=== PATIENT | female | born 1950 | race Caucasian/White ===

== ENCOUNTER 2018-02-20 12:09 | Inpatient (IN) | payer OTHER ==
[2018-02-20] VITALS (40 sets, daily range): BP systolic 63–145; BP diastolic 17–88
[~2018-02-20] VITALS: Ht 172.7 cm; Wt 186.5 kg
--- NOTE | ~2018-02-20 | HC ---
[facility] [place] [address] CONSULTATION Name: JONATHAN ANDUJAR Room #: 236-P [facility] IN ..#: [id number] Admission: 02/20/18 Attend Phys: Pernell Lawrence MD Discharge: Date of : 54 Report #: [id number] THIS REPORT FOR: //name// CC: Beverly Lawrence DATE OF SERVICE: 02/28/2018 FRONT END SOFTWARE DEVELOPER: Ascencion Shirley MD. SPECIALTY: Otolaryngology. REASON FOR CONSULTATION: Tracheostomy. HISTORY OF PRESENT ILLNESS: This patient is a 67-year-old female who has morbid obesity. She has multiple medical problems in addition to this. She has respiratory failure and has required mechanical ventilation and endotracheal intubation for extended length of time. Apparently, this has been a recurring theme with readmissions to the hospital for respiratory problems. I understand that she has multiple other medical problems including kidney disease, morbid obesity, obstructive sleep apnea, hypoventilation system, atrial fibrillation, cardiomyopathy, hypothyroidism. Tracheostomy has been discussed with the family and they have signed a consent and they are in agreement to do this. The patient has been on heparin and received her last dose this morning. PHYSICAL EXAMINATION: A middle-aged woman lying in hospital ICU bed with oral endotracheal intubation. She is morbidly obese. She has a short, stocky neck with a low lying larynx. There is a central line in the right side of the neck. ASSESSMENT: Respiratory failure and multiple medical problems requiring continued mechanical ventilation. RECOMMENDATION: Proceed with tracheostomy. This is arranged for tomorrow, will be performed by my partner, Dr. Christos Gracia. She is to stay off heparin until that time. <ELECTRONICALLY SIGNED> By: Ascencion Shirley MD 03/01/182029 01 26 Ascencion Shirley MD /nt
--- NOTE | ~2018-02-20 | EEG ---
[facility] [place] [address] ELECTROENCEPHALOGRAM Name: JONATHAN ANDUJAR Room #: 236-P [facility] IN M.R.#: [id number] Admission: 02/20/18 Attend Phys: Pernell Lawrence MD Discharge: 03/14/18 Date of : 54 Report #: [id number] THIS REPORT FOR: //name// CC: Beverly Lawrence DATE OF SERVICE: 03/13/2018 This patient is being evaluated for altered mental status. EEG was done by placing the electrodes by standard 10-20 system of electrode placement. Both referential and sequential montages were used for recording. Background activity is about 8 Hz and 30 microvolt. It is a poorly formed background activity. Photic stimulation is unremarkable. No active epileptiform activity was noted. IMPRESSION: This is an abnormal electroencephalogram because it is disorganized and poorly formed. There is a nonspecific abnormality, which can occur with encephalopathy, effect of psychotropic medication, dementia, etc. Clinical correlation is recommended. <ELECTRONICALLY SIGNED> By: Alberto Sebastian MD 03/17/18 1424 1811 1818 Alberto Sebastian MD /nt
--- NOTE | ~2018-02-20 | 2DMMODE ---
[facility] [address] [place] [address] 2 D/M-MODE ECHOCARDIOGRAM Name: JONATHAN ANDUJAR Room #: 242-P [facility] IN ..#: [id number] Admission: 02/20/18 Attend Phys: Pernell Lawrence, Discharge: Date of : 54 Date of Service: 02/21/18 1627 Report #: [id number] THIS REPORT FOR: //name// APPROVED REPORT Study performed: 02/21/2018 15:11:30 EXAM: Comprehensive 2D, Doppler, and color-flow Echocardiogram Patient Location: ICU Room #: 242 Status: routine BSA: 2.86 HR: 85 bpm BP: 109/58 mmHg Rhythm: Atrial Fibrillation Other Information Study Quality: Adequate Indications Short of breath, Afib, cardiomyopathy. Hx: HTN, Afib, DM. 2D Dimensions RVDd: 52.05 mm LVEF(%): 43.08 (>50%) IVSd: 11.50 (7-11mm) LVOT Diam: 22.24 (18-24mm) LVDd: 61.33 mm PWd: 10.57 (7-11mm) Ascending Ao: 35.26 (22-36mm) LVDs: 48.04 (25-40mm) Aortic Root: 28.90 mm Saravia's LVEF: 43.08 % Volumes Left Atrial Volume (Systole) Single Plane 4CH: 100.32 mL Single Plane 2CH: 84.28 mL Aortic Valve AoV Peak Yoni.: 2.06 m/s AO Peak Gr.: 17.12 mmHg LVOT Max P.53 mmHg LVOT Max V: 1.37 m/s MANJU Vmax: 2.57 cm2 Mitral Valve MV Decel. Time: 213.59 ms MV E Max Yoni.: 1.35 m/s [facility] [place] [address] 2 D/M-MODE ECHOCARDIOGRAM Name: PRATIMAJONATHAN S Room #: 242-P [facility] IN ..#: [id number] Admission: 02/20/18 Attend Phys: Pernell Lawrence, Discharge: Date of : 54 Date of Service: 02/21/18 1627 Report #: [id number] Pulmonary Valve PV Peak Yoni.: 1.39 m/s PV Peak Gr.: 7.93 mmHg Tricuspid Valve TR Peak Yoni.: 2.81 m/s RAP Estimate: 15.00 mmHg TR Peak Gr.: 32.00 mmHg PA Pressure: 47.00 mmHg Left Ventricle Left ventricle is mildly dilated. There is normal left ventricular wall thickness. Left ventricular systolic function is moderately decreased. LVEF is 35-40%. This study is not technically sufficient to allow evaluation of the LV diastolic function due to atrial fibrillation. Right Ventricle Right ventricle is dilated. Right ventricle is hypokinetic. Atria Left atrium is dilated. Right atrium is dilated. Aortic Valve The aortic valve is normal in structure. No aortic regurgitation is present. There is no aortic valvular stenosis. Mitral Valve The mitral valve is normal in structure. Moderate mitral regurgitation. Tricuspid Valve The tricuspid valve is normal in structure. Moderate tricuspid regurgitation. Estimated PAP is 45-50mmHg. Pulmonic Valve The pulmonary valve is normal in structure. Trace pulmonic regurgitation. Great Vessels The aortic root is normal in size. The ascending aorta is normal in size. IVC is dilated and collapses <50% with inspiration. Pericardium There is no pericardial effusion. [facility] [address] [place] [address] 2 D/M-MODE ECHOCARDIOGRAM Name: JONATHAN ANDUJAR Room #: 242-P [facility] IN ..#: [id number] Admission: 02/20/18 Attend Phys: Pernell Lawrence, Discharge: Date of : 54 Date of Service: 02/21/18 1627 Report #: [id number] <Conclusion> Left ventricle is mildly dilated. LVEF is 35-40%. Right ventricle is dilated. Right ventricle is hypokinetic. Left atrium is dilated. Right atrium is dilated. The aortic valve is normal in structure. The mitral valve is normal in structure. Moderate mitral regurgitation. The tricuspid valve is normal in structure. Moderate tricuspid regurgitation. Estimated PAP is 45-50mmHg. The pulmonary valve is normal in structure. Trace pulmonic regurgitation. There is no pericardial effusion. <ELECTRONICALLY SIGNED> By: Mann Roque MD 02/21/181626 26 26 Mann Roque MD /INF
--- NOTE | ~2018-02-20 | O ---
[facility] [place] [address] OPERATIVE REPORT Name: JONATHAN ANDUJAR Room #: 236-P [facility] IN M.R.#: [id number] Admission: 02/20/18 Attend Phys: Pernell Lawrence MD Discharge: Date of : 54 Report #: [id number] THIS REPORT FOR: //name// CC: Beverly Lawrence DATE OF SERVICE: 03/01/2018 PROCEDURES: 1. Tracheostomy, [address]. 2. Bronchoscopy via tracheal stoma. PREOPERATIVE DIAGNOSES: 1. Respiratory failure. 2. Morbid obesity. POSTOPERATIVE DIAGNOSES: 1. Respiratory failure. 2. Morbid obesity. SURGEON: Christos Gracia MD ANESTHESIA: General. ESTIMATED BLOOD LOSS: 15 mL. COMPLICATIONS: None. SPECIMENS: None. FINDINGS: 1. The patient was found to have a normal tracheal anatomy. 2. A size #8 proximal XLT tracheostomy tube was placed at the end of the case. Tracheostomy placement was confirmed via a flexible endoscopy via a tracheostomy stoma. This was found to be in the trachea above the patricia. INDICATIONS FOR PROCEDURE: The patient is a 67-year-old lady who has a history of respiratory failure and morbid obesity. She has failed to wean from the vent and it is said that she would benefit from tracheostomy placement. The risks, benefits and alternatives were discussed with her family and they agreed to proceed. DESCRIPTION OF PROCEDURE: After informed consent was obtained, the patient was taken to the operating room and placed in supine position. She underwent general anesthesia. She was prepped and draped in the usual fashion. A timeout [facility] [address] [place] [address] OPERATIVE REPORT Name: JONATHAN ANDUJAR Room #: 236-P ADM IN M.R.#: [id number] Admission: 02/20/18 Attend Phys: Pernell Lawrence MD Discharge: Date of : 54 Report #: [id number] was performed. Correct patient and procedure were identified. A horizontal incision was marked between the cricoid cartilage and the sternal notch. Skin was incised with a 15 blade scalpel. Subcutaneous fat was then removed with Bovie cautery. Fascia was divided in a vertical fashion using Bovie cautery. Strap muscles were identified and these were divided in the midline raphae using the Bovie cautery and then retracted laterally. Thyroid isthmus was then identified. This was elevated off the anterior tracheal wall with a right angle. This was then divided with the Bovie cautery. The thyroid was then retracted laterally to expose the anterior wall of the trachea. The cricoid cartilage was identified. An inferiorly based Zack flap was designed between the first and second tracheal rings. Anesthesia then deflated the cuff on the endotracheal tube. An #11 blade scalpel was used to incise between the first and second tracheal rings. The vertical limbs of the Zack flap were then created using heavy Metzenbaum scissors. The flap was then retracted inferiorly. The endotracheal tube was withdrawn by the Anesthesia Service. A size #8 proximal XLT tracheostomy tube was then placed into the tracheostomy and the patient was then connected to the anesthesia circuit and end tidal CO2 were confirmed. The trach was then secured to the skin with 3-0 nylon sutures. One was placed in each corner for a total of 4 sutures. It was also secured by placing tracheostomy ties. Bronchoscopy was then performed through the tracheostomy tube with a flexible endoscope and it was confirmed that the tracheostomy tube was in the airway and that the tip was sitting above the patricia. The endoscope was then withdrawn. The patient was hooked back up to the anesthesia circuit. She was then turned back over to the Anesthesia Service and successfully transported back to the ICU in stable condition. All counts were reported as correct and there were no complications during the procedure. DISPOSITION: The patient will remain in the ICU and routine tracheostomy care will be performed. <ELECTRONICALLY SIGNED> By: Christos Gracia MD 03/07/18 1745 1329 1422 Christos Gracia MD /nt
--- NOTE | ~2018-02-20 | PATH ---
[facility] [place] [address] PATHOLOGY RPT PROCEDURE Name: JONATHAN ANDUJAR Room #: 236-P ADM IN M.R.#: [id number] Admission: 02/20/18 Date of : 54 Discharge: Report #: [id number] Path Case #: [id number] Note [facility] Accession Number: [id number] TESTS RESULT FLAG UNITS REF RANGE LAB Clinician Provided Cytology Information No. of containers..01 Other (Miscellaneous) Source: BAL RUL DIAGNOSIS: 02 BAL RUL INCONCLUSIVE. REACTIVE BRONCHIAL CELLS ARE PRESENT. PULMONARY MACROPHAGES PRESENT, INDICATIVE OF LOWER RESPIRATORY TRACT SAMPLING. ATYPICAL EPITHELIOID CELLS WITH ENLARGED NUCLEI IDENTIFIED, SEE COMMENT. Comment: Scattered groups of atypical epithelioid cells with low nuclear to cytoplasmic ratio and prominent nucleoli are identified. These may represent reactive bronchial cells or neoplastic cells. The presence of diffuse parenchymal consolidation on CT lung is noted. Please correlate clinically. [facility] - Dr. Keren Farmer. (IUV; 02/24/18) Signed out by: 02 Isabel Cervantes MD, Pathologist NPI- [id number] Performed by: 03 Ophelia Burton, Litigation Counsel ([facility]) Gross description: 01 9ML, RED, CLOUDY /LCS FLAG LEGEND: L-Low Normal,H-High Normal,LL-Alert Low,HH-Alert High <-Panic Low,>-Panic High,A-Abnormal,AA-Critical Abnormal Performed at: 01 [facility] [address] [facility] [address] [place] [address] Albert Mosher MD, [address] [address] Isabel Cervantes MD, [address] [facility] [address] [address] [address] PATHOLOGY RPT PROCEDURE Name: JONATHAN ANDUJAR Room #: 236-P [facility] IN .R.#: [id number] Admission: 02/20/18 Date of : 54 Discharge: Report #: [id number] Path Case #: [id number] Jakcy Doran MD, Performed at: [address], [place], [place] [id number] MD Albert Mosher MD Phone: [phone]
--- NOTE | ~2018-02-20 | HC ---
[facility] [place] [address] CONSULTATION Name: ANDUJARJONATHAN Verde Room #: 236-P [facility] IN M.R.#: [id number] Admission: 02/20/18 Attend Phys: Pernell Lawrence MD Discharge: Date of : 54 Report #: [id number] THIS REPORT FOR: //name// CC: Beverly Lawrence REASON FOR CONSULTATION: Acute kidney injury. REASON FOR PRESENTATION: Shortness of breath. HISTORY OF PRESENT ILLNESS: This is a very well known patient to me. She is a 67-year-old with morbid obesity, hypoventilation syndrome, pulmonary hypertension, cardiomyopathy, chronic kidney disease. She was recently discharged from [facility] after being treated for volume overload and cellulitis with sepsis. Her creatinine has leveled at around 2.0. I evaluated her this morning in the [facility] and she was having major issues with her breathing and somnolence and I asked that she be transferred to [facility] because of an acute kidney injury, worsening pulmonary status. On presentation to the Emergency Room, she was found to be in hypercapnic respiratory failure with a pH of 7.20 and a pCO2 peaking at 100. She had an acute kidney injury with a BUN of 121 and a creatinine of 4.2 with a potassium of 6.2. She suffers from major comorbid conditions and lengthy discussion has been carried out with her family members regarding her very poor prognosis. Family wanted to continue with all current supportive measures at this point. She failed trials of Lasix. MEDICATIONS: 1. Amiodarone. 2. Atorvastatin. 3. Diltiazem. 4. Levothyroxine. 5. Eliquis. 6. Iron. 7. Cefepime. PAST MEDICAL AND SURGICAL HISTORY: 1. AFib. 2. Obstructive sleep apnea. 3. Obesity. 4. Pulmonary hypertension. 5. Cellulitis. 6. Lymphedema. 7. Chronic kidney disease. 8. D and Cs. 9. Oophorectomy. 10. Appendectomy. [facility] [address] [place] [address] CONSULTATION Name: PRATIMAJONATHAN S Room #: 236-[facility] IN [facility].#: [id number] Admission: 02/20/18 Attend Phys: Pernell Lawrence MD Discharge: Date of : 54 Report #: [id number] SOCIAL HISTORY: She used to live by herself. No drug or alcohol abuse. FAMILY HISTORY: Significant for chronic kidney disease. Her mom because of kidney failure. REVIEW OF SYSTEMS: This was obtained from her family member. GENERAL: Significant for somnolence and weakness. PULMONARY: Significant for shortness of breath. CARDIOVASCULAR: No chest pain. She does have AFib. MUSCULOSKELETAL: Significant lower extremity edema and cellulitis. GENITOURINARY: Decreased urine output. PHYSICAL EXAMINATION: GENERAL: She was on the CPAP. VITAL SIGNS: Blood pressure was marginal at 106/ . She did have low blood pressure at 93/64. She was afebrile. HEAD AND NECK: Morbidly obese. CHEST: Very limited air entry bilaterally. CARDIOVASCULAR: Distant S1, S2. ABDOMEN: Morbid obesity. LOWER EXTREMITIES: Extensive lymphedema. LABORATORY DATA: Reviewed. BUN is 121, creatinine is 4.2. Sodium is 134, potassium is 6.2. Chest x-ray reviewed. ASSESSMENT, IMPRESSION, PLAN: 1. Acute kidney injury. 2. Hypercapnic respiratory failure. 3. Hyperkalemia. 4. Anuria. 5. Morbid obesity. 6. Cellulitis. 7. Pulmonary hypertension. 8. Cardiomyopathy. We had a lengthy discussion with her family members in both [facility] and [facility]. Family was very resistant for any palliative and comfort care. We have explained for the family on numerous occasions that the root of the problem is her lung issues, morbid obesity, cardiomyopathy, pulmonary hypertension. Family as of this moment wants all heroic measures. They are considering temporary dialysis for her hyperkalemia and fluid overload and if there is no improvement in her condition, we will proceed with palliative and comfort care. I explained for the family on numerous occasions that she is not a good candidate for any long-term dialysis. [address] [address] CONSULTATION Name: ANDUJARJONATHAN Verde Room #: 236-P [facility] IN M.R.#: [id number] Admission: 02/20/18 Attend Phys: Pernell Lawrence MD Discharge: Date of : 54 Report #: [id number] 9. We will ask IR to place temporary dialysis catheter. 10. We will initiate on hemodialysis today. 11. Pending intubation for her hypercapnic respiratory failure. 12. Treatment of her cellulitis. 13. Control of her atrial fibrillation. 14. Broad-spectrum antibiotic. 15. We will continue to follow along. <ELECTRONICALLY SIGNED> By: Serafin Riley MD 02/25/18 0756 2032 0559 Serafin Riley MD /nt
--- NOTE | ~2018-02-20 | EKG ---
[address] [employer] [place] [address] ELECTROCARDIOGRAM REPORT Name: JONATHAN ANDUJAR Room #: 236-P ADM IN M.R.#: [id number] Admission: 02/20/18 Attend Phys: Pernell Lawrence MD Discharge: Date of : 54 Report #: [id number] THIS REPORT FOR: //name// [facility] Test Date: 2018-03-02 Test Time: 09:55:46 Pat Name: JONATHAN ANDUJAR Department: Room: 236 Gender: F [employer]: Mela LEBRON : 1950 Requested By: Eddy Gerardo Order Number: [id number] MD: Fernando Gottlieb Measurements Intervals Snyder Rate: 116 P: AR: QRS: -3 QRSD: 144 T: 148 QT: 360 QTc: 501 Interpretive Statements Atrial fibrillation Left bundle branch block Compared to ECG 02/20/2018 12:10:30 No significant changes Electronically Signed On 03-03-2018 12:45:58 CDT by Fernando Gottlieb [email or web address] <ELECTRONICALLY SIGNED> By: Fernando Gottlieb MD, [facility] 03/03/18 1245 4 Fernando Gottlieb MD, [facility] /EPI
--- NOTE | ~2018-02-20 | HC ---
[facility] [place] [address] CONSULTATION Name: ANDUJARJONATHAN Verde Room #: 242-P [facility] IN M.R.#: [id number] Admission: 02/20/18 Attend Phys: Pernell Lawrence MD Discharge: Date of : 54 Report #: [id number] THIS REPORT FOR: //name// CC: Beverly Lawrence TYPE OF REPORT: Infectious disease consultation. REASON FOR CONSULTATION: I was asked to evaluate concerning sepsis, acute renal failure, respiratory failure and hypoxia. HISTORY OF PRESENT ILLNESS: The patient was a 67-year old, underlying chronic kidney disease, atrial fibrillation and morbid obesity; who was hospitalized in [facility] on 02/05/2018. She had lower extremity venous stasis wounds with cellulitis. Culture positive for MRSA and pseudomonas. She was admitted with pneumonia and respiratory acidosis, shock and respiratory failure. She did require intubation and mechanical ventilation. Within 24 hours. She was extubated and remained on BiPAP. She does have underlying obstructive sleep apnea. She initially was treated with vancomycin and Zosyn and later switched to cefepime and doxycycline. She was transferred on 02/17/2018 to [facility] on BiPAP. Her lower extremities had improved. She was alert and cooperative during the weekend only to develop further respiratory compromise today with acute renal failure and hyperkalemia. She was therefore transferred to [facility] for further treatment. She required intubation and mechanical ventilation. She is now on the ventilator and sedated. No vomiting or diarrhea. Decreased urine output with bloody urine noted. She did require acute dialysis. She has a right IJ dialysis catheter in place. Left upper extremity PICC remains in place. PAST MEDICAL HISTORY: COPD; obstructive sleep apnea, on chronic oxygen use; morbid obesity; venous stasis disease and atrial fibrillation. FAMILY HISTORY: Noncontributory. SOCIAL HISTORY: She is a past smoker. No significant alcohol intake and no HIV risk factors. ALLERGIES: None. MEDICATIONS: As noted on her NOV, now on vancomycin and cefepime. PHYSICAL EXAMINATION: VITAL SIGNS: Afebrile and hemodynamically stable on Levophed drip and propofol. She is on FiO2 of 50%, sedated. Lower extremity venous stasis dermatitis much improved from last week. No draining wounds. No cellulitis. She does arouse. CHEST: Coarse bilaterally. HEART: Regular, without murmur. [address] [address] CONSULTATION Name: JONATHAN ANDUJAR Room #: 242-P [facility] IN [facility]#: [id number] Admission: 02/20/18 Attend Phys: Pernell Lawrence MD Discharge: Date of : 54 Report #: [id number] ABDOMEN: Obese and soft. Right IJ catheter for dialysis unremarkable. EXTREMITIES: Left upper extremity PICC unremarkable. RADIOLOGICAL DATA: Chest x-ray, bilateral pulmonary infiltrates. LABORATORY DATA: ABG on 50%: Lactate 1.3, pO2 of 76, pCO2 of 81 and pH 7.19. BNP 14,162. Liver function panel normal. Sodium 134, potassium 6.2, bicarbonate 31 and creatinine 4.2. Urinalysis 6-15 wbc's, greater than 20 rbc's and few bacteria. Hemoglobin 8.8; white count 19.8 and platelet count 129,000. Differential, 91% segs. IMPRESSION: A 67-year old with chronic kidney disease, chronic obstructive pulmonary disease, obstructive sleep apnea, obesity, recent respiratory failure on bilevel positive airway pressure and bilateral lower extremity venous stasis with ulcerations overall improved in this regard. Now acute renal failure with hyperkalemia requiring acute dialysis. She has bilateral pulmonary infiltrates and respiratory failure. Consideration would include a combination of congestive heart failure and healthcare-associated pneumonia. RECOMMENDATIONS: Recommend broad antibiotic coverage with vancomycin and cefepime. We will repeat blood cultures, sputum culture and urine culture. Adjust antibiotics to her renal failure. I have discussed with nursing at the bedside. <ELECTRONICALLY SIGNED> By: Kings Dejesus MD 02/21/18 0744 0000 0220 Kings Dejesus MD /nt
--- NOTE | ~2018-02-20 | HC ---
[facility] [place] [address] CONSULTATION Name: JONATHAN ANDUJAR Room #: 242-P [facility] IN ..#: [id number] Admission: 02/20/18 Attend Phys: Pernell Lawrence MD Discharge: Date of : 54 Report #: [id number] THIS REPORT FOR: //name// CC: Beverly Lawrence TYPE OF REPORT: Pulmonary consultation. REFERRAL PHYSICIAN: Pernell Lawrence M.D. REASON FOR CONSULTATION: Dxkko-ns-xhtpvhg hypercapnic hypoxic respiratory failure. HISTORY OF PRESENT ILLNESS: The patient is a 67-year-old white female who was brought to the Emergency Room with progressive hypoxia, oliguria for the past 24 hours. A pulmonary consultation was requested. History is very limited as the patient is very hypersomnolent. She is on BiPAP. There is a niece who lives with the patient. She states that she has been chronically ill. She was hospitalized at [facility] more than 2 weeks ago. She was then transferred to [facility] for rehabilitation. She was in her usual state of health until one day prior to presentation, she was found to be more hypoxic with progressive oliguria. She is arousable, but very somnolent. Her pCO2 on admission was more than 90 mmHg. PAST MEDICAL HISTORY: Notable for history, WENDY, morbid obesity, cardiomyopathy, atrial fibrillation, hypertension, chronic lower extremity cellulitis, recurrent pneumonias, chronic kidney disease stage 3 and hypothyroidism. PAST SURGICAL HISTORY: Notable for oophorectomy, appendectomy and D and C. ALLERGIES: None to medications. MEDICATIONS: Lists are reviewed and this include DuoNeb, amiodarone, Lipitor, Cardizem, Lasix, Synthroid, nystatin, Protonix, Eliquis, doxycycline, methylprednisolone 40 mg once a day, multivitamins, alprazolam and hydrocodone. FAMILY HISTORY: Unknown. SOCIAL HISTORY: No tobacco or alcohol use. She lives with a niece, has no children, has no . REVIEW OF SYSTEMS: Deferred as the patient is on BiPAP. [facility] [address] [place] [address] CONSULTATION Name: PRATIMAJONATHAN Mehreen Room #: 242-P [facility] IN [facility]#: [id number] Admission: 02/20/18 Attend Phys: Pernell Lawrence MD Discharge: Date of : 54 Report #: [id number] PHYSICAL EXAMINATION: GENERAL: She is very somnolent but arousable. VITAL SIGNS: Temperature is 96.8 degrees Fahrenheit, pulse is 90, respiratory rate is 18, blood pressure is 100/72 mmHg and saturation is 100% on BiPAP. HEENT: Normocephalic and atraumatic. NECK: Supple, without any lymphadenopathy or thyromegaly. CHEST: Breath sounds are fair decreased bilaterally. No obvious wheezes or rales. CARDIOVASCULAR: Normal S1 and S2. There are no murmurs or gallop. There is no JVD. There is no carotid bruit. Pulses are 2+/4+ bilaterally. BREASTS: Exam deferred. ABDOMEN: Obese, soft and nontender. No organomegaly or masses felt. GENITOURINARY: Deferred. RECTAL: Deferred. EXTREMITIES: Notable for 3-4+ bilateral pretibial edema, moderate stasis dermatitis is noted in the lower extremities. NEUROLOGICAL: Very somnolent but arousable. RADIOLOGICAL DATA: Portable chest x-ray shows patchy bilateral infiltrates, greater in the right than the left, infiltrates appears to involve all five lobes. There are no old x-rays for comparison. EKG shows left bundle-branch block and atrial fibrillation. LABORATORY DATA: Sodium 134, potassium 6.2, chloride 97, CO2 31, BUN is 121 and creatinine is 4.2. WBC 9800, hemoglobin 8.8 and platelets are normal and no evidence of bandemia. Arterial blood gas on admission revealed pH 7.11, pCO2 100 and pO2 of 71. Albumin 2.4. IMPRESSION: 1. Sckic-ll-trvucai hypercapnic hypoxic respiratory failure in this 67-year-old morbidly obese white female. She has a history of recurrent pneumonias and obstructive sleep apnea. She is quite somnolent at this time. Chest x-ray shows moderate bilateral patchy infiltrates. Etiology may be due to recurrent pneumonia along with underlying obstructive sleep apnea with probable component of obesity hypoventilation syndrome. 2. Acute kidney injury/chronic kidney disease. 3. Obstructive sleep apnea. 4. History of recurrent pneumonia with bilateral infiltrates. It is unclear if the patient has chronic infiltrates or interstitial lung disease. If so, we will need to be concerned regarding drug-induced interstitial lung disease such as amiodarone. 5. Permanent atrial fibrillation, anticoagulation. Also, on amiodarone as see above comments. 6. Cardiomyopathy. 7. Hypertension. [facility] [address] [place] [address] CONSULTATION Name: JONATHAN ANDUJAR Room #: 242-P [facility] IN [place]#: [id number] Admission: 02/20/18 Attend Phys: Pernell Lawrence MD Discharge: Date of : 54 Report #: [id number] 8. Hypothyroidism. 9. Chronic lower extremity cellulitis. 10. Hyperkalemia with presumed worsening renal function. 11. Severe protein-calorie malnutrition. RECOMMENDATIONS: We will continue BiPAP given altered mental status, quite concerned the patient may not be able to stabilize with noninvasive positive pressure ventilation. A followup arterial blood gas is recommended. Agree with broad-spectrum antibiotics to treat for recurrent pneumonia, possible aspiration. The patient scheduled to undergo placement of a temporary dialysis catheter to undergo urgent dialysis given hyperkalemia. DVT and GI prophylaxis will be addressed. ADDENDUM: A followup arterial blood gas shows worsening respiratory acidosis. She was electively intubated with a 7.5 mm ET tube with a GlideScope. Follow up chest x-ray, atrial blood gas is pending. Thank you for this consultation. CRITICAL CARE TIME: One hour. <ELECTRONICALLY SIGNED> By: Aryan Zarco MD 02/21/18 1408 1733 0112 Aryan Zarco MD /nt
--- NOTE | ~2018-02-20 | DEA ---
[facility] [place] [address] SUMMARY Name: PRATIMAJONATHAN Verde Room #: 236-P [facility] IN ..#: [id number] Admission: 02/20/18 Attend Phys: Pernell Lawrence MD Discharge: 03/14/18 Date of : 54 Report #: [id number] THIS REPORT FOR: //name// CC: Beverly Lawrence DATE OF SERVICE: 03/14/2018 SUMMARY DIAGNOSES: 1. Acute respiratory failure. 2. Acute on chronic hypoxic and hypercapnic respiratory failure. 3. Obesity hypoventilation. 4. Respiratory acidosis. 5. Acute encephalopathy secondary to hypercapnia and possible sepsis. 6. Status post tracheostomy. 7. Acute renal failure. 8. Chronic kidney disease, stage 3. 9. Atrial fibrillation. 10. Nonischemic cardiomyopathy, ejection fraction of 35-40%. 11. Diabetes. 12. Anemia of chronic disease. 13. Thrombocytopenia. HOSPITAL COURSE: The patient is a 67-year-old female, with history of obesity hypoventilation, diabetes, hyperlipidemia and hypothyroidism, was recently admitted at [place] with cellulitis secondary to MRSA, was brought in from [facility] secondary to being very somnolent. The patient was recently admitted at [place] with cellulitis secondary to methicillin-resistant Staphylococcus aureus. She was discharged to [facility]. She was brought back to [facility] because of worsening mental status. On arrival, she was found to be in acute renal failure with a creatinine of 4, potassium was 6.2. She was also hypoxic. The patient was seen by infectious disease and pulmonary. The patient was subsequently intubated for acute respiratory failure. The patient was unable to be weaned off the ventilator and subsequently, tracheostomy was performed. She had an echocardiogram done during this hospitalization, which showed nonischemic cardiomyopathy with EF of 35-40%. The patient's renal function never improved, and the patient required dialysis. Her mental status did not improve much. The patient required Levophed. She was unable to be weaned off of Levophed. Poor prognosis was discussed with the family. According to the family, the patient would not want to be kept alive with artificial means. The patient has a continued decline over the last few years and progressively gotten worse. [address] [address] SUMMARY Name: JONATHAN ANDUJAR Room #: 236-P [facility] IN [facility]#: [id number] Admission: 02/20/18 Attend Phys: Pernell Lawrence MD Discharge: 03/14/18 Date of : 54 Report #: [id number] Family requested palliative care and hospice. The patient was subsequently placed on hospice and she on 03/14/2018. <ELECTRONICALLY SIGNED> By: Ubaldo Patterson MD 03/21/18 1606 [id number] Ubaldo Patterson MD /jimbo
--- NOTE | ~2018-02-20 | EKG ---
[address] [address] ELECTROCARDIOGRAM REPORT Name: JONATHAN ANDUJAR Room #: 242-P ADM IN M.R.#: [id number] Admission: 02/20/18 Attend Phys: Pernell Lawrence MD Discharge: Date of : 54 Report #: [id number] THIS REPORT FOR: //name// [facility] ED Test Date: 2018-02-20 Test Time: 12:10:30 Pat Name: JONATHAN ANDUJAR Department: Room: Gender: F Relocation Associate: VANGEI : 1950 Requested By: Renetta Bobby Order Number: [id number] MD: Bert Galindo Measurements Intervals Kathleen Rate: 92 P: ME: QRS: 118 QRSD: 141 T: 84 QT: 378 QTc: 468 Interpretive Statements Atrial fibrillation Left bundle branch block Compared to ECG 12/09/2006 16:37:37 Left bundle-branch block now present Sinus rhythm no longer present Poor R-wave progression no longer present Electronically Signed On 02-20-2018 15:59:00 CDT by Bert Galindo [email or web address] <ELECTRONICALLY SIGNED> By: Bert Galindo MD 02/20/18 1559 1210 1210 Bert Galindo MD /EPI
--- NOTE | ~2018-02-20 | O ---
[facility] [place] [address] OPERATIVE REPORT Name: JONATHAN ANDUJAR Room #: 236-P [facility] IN .R.#: [id number] Admission: 02/20/18 Attend Phys: Pernell Lawrence MD Discharge: Date of : 54 Report #: [id number] THIS REPORT FOR: //name// CC: Beverly Lawrence MD CLINICAL HISTORY: A 67-year-old white female with persistent infiltrates and possible recurrent pneumonia. A diagnostic bronchoscopy was performed. POSTOPERATIVE DIAGNOSES: 1. Normal airways. 2. No evidence of purulent secretions. 3. Bronchoalveolar lavage right upper lobe, anterior segment performed. DESCRIPTION OF PROCEDURE: Following obtained consent and risks and benefits being explained to the patient's family, which include infection, bleeding, pneumothorax, the procedure performed in the ICU. Through the previously placed ET tube, a flexible fiberoptic bronchoscope was introduced without difficulty. Distal trachea was normal, patricia was normal. Left mainstem bronchus, left upper lobe and left lower lobe were normal. Right mainstem bronchus, right middle lobe and right lower lobe were normal. Right upper lobe was grossly unremarkable. The anterior segment of the right upper lobe appears to be somewhat narrowed. Bronchoalveolar lavage was performed at the anterior segment of the right upper lobe. Five aliquots of 20 mL normal saline was given with adequate return in the specimen cup. There was no bleeding noted. The patient tolerated the procedure well. Vital signs and saturation throughout the study were within the normal range. Bronchoalveolar lavage will be sent for microbiologic studies along with cytology. <ELECTRONICALLY SIGNED> By: Aryan Zarco MD 02/24/18 1725 1242 1255 Aryan Zarco MD /nt
[2018-02-20 12:34] LABS: ABSOLUTE NEUTROPHILS 18.2 thou/uL (1.4-8.2); BASOPHILS 0.4 % (0.0-2.0); EOSINOPHILS 0.1 % (0.0-3.0); HEMATOCRIT 29.2 % (37.0-47.0); HEMOGLOBIN 8.8 gm/dL (12.0-15.0); LYMPHOCYTES 1.1 % (24.0-44.0); MCHC 30.2 g/dL (28.0-37.0); MCV 85.9 fL (80.0-100.0); MONOCYTES 6.8 % (1.0-8.0); PLATELET COUNT 129 thou/uL (150-400); POLYS 91.6 % (36.0-66.0); RDW 17.6 % (10.5-14.5); WBC 19.8 thou/uL (4.0-11.0)
[2018-02-20 12:49] LABS: URINE BILIRUBIN NEGATIVE (Negative); URINE BLOOD 3+ (Negative); URINE CLARITY TURBID; URINE COLOR RED; URINE GLUCOSE-RANDOM* NEGATIVE (Negative); URINE KETONES TRACE (Negative); URINE NITRITE-REFLEX NEGATIVE (Negative); URINE PROTEIN (DIPSTICK) 3+ (Negative); URINE UROBILINOGEN 0.2 E.U./dl (0.2-1.0)
[2018-02-20 12:50] LABS: CRYSTALS None Seen /LPF (None Seen); URINE LEUKOCYTES-REFLEX TRACE (Negative); URINE RBC >20 Many /HPF (0-2)
[2018-02-20 12:51] LABS: CALCIUM 9.6 mg/dL (8.5-10.1); CREATININE 4.2 mg/dL (0.6-1.0)
[2018-02-20 12:51] LABS: BACTERIA-REFLEX 1-9 Few /HPF (None Seen); CASTS None Seen /LPF (None Seen); SQUAMOUS None Seen /LPF (0-3); URINE WBC-REFLEX 6-15 Few /HPF (0-5)
[2018-02-20 12:52] LABS: POTASSIUM 6.2 mmol/L (3.5-5.1)
[2018-02-20 12:53] LABS: APTT 30.7 Seconds (24.5-32.8); INR 1.1; PROTIME 11.5 Seconds (9.3-11.4)
[2018-02-20 12:56] LABS: ALBUMIN 2.4 g/dL (3.4-5.0); DIRECT BILIRUBIN 0.2 mg/dL (<0.1-0.3); TOTAL BILIRUBIN 0.4 mg/dL (<0.1-1.0); TOTAL PROTEIN 6.3 g/dL (6.4-8.2)
[2018-02-20 13:13] LABS: BE(vivo) 0.7 mmol/L (-2 to +3); HCO3 31.8 mmol/L (22.0-26.0); PCO2 100.2 mmHg (35.0-45.0); PO2 71.5 mmHg (80.0-100.0); pH 7.119 (7.360-7.450); sO2 87.1 % (92.0-98.0)
[2018-02-20] MEDS ORDERED: PACERONE 200 M200 M1 PO (13:21)
[2018-02-20] MEDS ORDERED: DUONEB 2.5-0.5 M3 ML INH (13:21)
[2018-02-20] MEDS ORDERED: LIPITOR 20 MG T20 M1 PO (13:22)
[2018-02-20] MEDS ORDERED: ELIQUIS5 MG PO (13:22)
[2018-02-20] MEDS ORDERED: VITAMIN D1000 UNI1 PO (13:23)
[2018-02-20] MEDS ORDERED: VITAMIN B122500 MCG PO (13:23)
[2018-02-20] MEDS ORDERED: DOXYCYCLINE 10100 MG PO (13:24)
[2018-02-20] MEDS ORDERED: CARDIZEM30 MG PO (13:24)
[2018-02-20] MEDS ORDERED: LASIX 40 MG TAB40 M2 PO (13:24)
[2018-02-20] MEDS ORDERED: SYNTHROID150 MCG PO (13:25)
[2018-02-20] MEDS ORDERED: LIDOCAINE1 EACH TRANSDERM (13:26)
[2018-02-20] MEDS ORDERED: METHYLPRED IV (13:28)
[2018-02-20] MEDS ORDERED: NYAMYC15 GM TOP (13:28)
[2018-02-20] MEDS ORDERED: UNICOMPLEX M TA1 TA1 PO (13:28)
[2018-02-20] MEDS ORDERED: PROTONIX IV40 MG PO (13:29)
[2018-02-20] MEDS ORDERED: POLYSACCHARIDE150 MG PO (13:29)
[2018-02-20] MEDS ORDERED: CEFEPIME 11 GM/50 ML IV (13:30)
[2018-02-20] MEDS ORDERED: NYSTATIN S PO (13:31)
[2018-02-20] MEDS ORDERED: [UNRECOGNIZED DRUG - OTHER] PO (13:31)
[2018-02-20] MEDS ORDERED: XANAX 0.25 MG0.25 MG PO (13:32)
[2018-02-20] MEDS ORDERED: HYDROCODONE-AP1 EAC6 PER TUBE (13:32)
[2018-02-20 14:36] LABS: BE(vivo) 1.7 mmol/L (-2 to +3); PO2 171.1 mmHg (80.0-100.0); pH 7.201 (7.360-7.450); sO2 98.7 % (92.0-98.0)
[2018-02-20 16:15] LABS: BE(vivo) -0.1 mmol/L (-2 to +3); HCO3 30.6 mmol/L (22.0-26.0); PCO2 94.9 mmHg (35.0-45.0); PO2 206.4 mmHg (80.0-100.0); pH 7.126 (7.360-7.450)
[2018-02-20 18:40] LABS: BE(vivo) 1.5 mmol/L (-2 to +3); HCO3 30.9 mmol/L (22.0-26.0); PCO2 81.4 mmHg (35.0-45.0); PO2 76.2 mmHg (80.0-100.0); pH 7.197 (7.360-7.450); sO2 91.3 % (92.0-98.0)
[2018-02-21] VITALS (93 sets, daily range): BP systolic 90–142; BP diastolic 32–111
[2018-02-21 05:09] LABS: BE(vivo) 6.2 mmol/L (-2 to +3); HCO3 32.3 mmol/L (22.0-26.0); PCO2 55.8 mmHg (35.0-45.0); PO2 104.3 mmHg (80.0-100.0); pH 7.381 (7.360-7.450); sO2 97.6 % (92.0-98.0)
[2018-02-21 06:05] LABS: HEMATOCRIT 24.8 % (37.0-47.0); HEMOGLOBIN 7.7 gm/dL (12.0-15.0); MCHC 31.1 g/dL (28.0-37.0); MCV 83.8 fL (80.0-100.0); RBC 2.96 mil/uL (4.20-5.00); RDW 17.1 % (10.5-14.5); WBC 14.3 thou/uL (4.0-11.0)
[2018-02-21 06:17] LABS: CALCIUM 8.9 mg/dL (8.5-10.1); MAGNESIUM 2.2 mg/dL (1.8-2.4)
[2018-02-21 06:22] LABS: POTASSIUM 5.1 mmol/L (3.5-5.1)
[2018-02-21 06:24] LABS: BE(vivo) 3.2 mmol/L (-2 to +3); pH 7.289 (7.360-7.450); sO2 93.9 % (92.0-98.0)
[2018-02-21 07:17] LABS: HEPATITIS B SURFACE AG Negative (Negative)
[2018-02-21 09:26] LABS: PROT/CREAT RATIO 7.7; URINE CREATININE-RANDOM* 47.2 mg/dL; URINE PROTEIN-RANDOM* 361.6 mg/dL (<11.9)
[2018-02-21 11:22] LABS: APTT 31.5 Seconds (24.5-32.8); INR 1.2
[2018-02-21 12:36] LABS: FIBRINOGEN 410.4 mg/dL (210-360)
[2018-02-22] VITALS (67 sets, daily range): BP systolic 95–130; BP diastolic 43–83
[2018-02-22 05:19] LABS: BE(vivo) 3.9 mmol/L (-2 to +3); HCO3 29.1 mmol/L (22.0-26.0); PCO2 46.9 mmHg (35.0-45.0); PO2 144.6 mmHg (80.0-100.0); pH 7.411 (7.360-7.450); sO2 98.9 % (92.0-98.0)
[2018-02-22 06:08] LABS: HEMATOCRIT 24.3 % (37.0-47.0); HEMOGLOBIN 7.8 gm/dL (12.0-15.0); MCH 26.2 pg (26.0-34.0); MCHC 32.1 g/dL (28.0-37.0); MCV 81.6 fL (80.0-100.0); RBC 2.98 mil/uL (4.20-5.00); RDW 16.9 % (10.5-14.5); WBC 11.5 thou/uL (4.0-11.0)
[2018-02-22 06:21] LABS: ALBUMIN 1.9 g/dL (3.4-5.0); CALCIUM 8.3 mg/dL (8.5-10.1); CREATININE 2.7 mg/dL (0.6-1.0); POTASSIUM 4.1 mmol/L (3.5-5.1)
[2018-02-22 16:22] LABS: HCO3 28.4 mmol/L (22.0-26.0); PCO2 53.9 mmHg (35.0-45.0); PO2 84.3 mmHg (80.0-100.0); pH 7.339 (7.360-7.450); sO2 95.6 % (92.0-98.0)
[2018-02-23] VITALS (44 sets, daily range): BP systolic 90–137; BP diastolic 46–78
[2018-02-23 04:41] LABS: HEMATOCRIT 23.6 % (37.0-47.0); HEMOGLOBIN 7.6 gm/dL (12.0-15.0); MCH 26.3 pg (26.0-34.0); MCHC 32.1 g/dL (28.0-37.0); MCV 82.1 fL (80.0-100.0); RBC 2.87 mil/uL (4.20-5.00); WBC 8.4 thou/uL (4.0-11.0)
[2018-02-23 04:50] LABS: ALBUMIN 1.8 g/dL (3.4-5.0); CALCIUM 8.1 mg/dL (8.5-10.1); CREATININE 2.5 mg/dL (0.6-1.0); PHOSPHORUS 3.4 mg/dL (2.5-4.9); POTASSIUM 3.4 mmol/L (3.5-5.1)
[2018-02-23 05:11] LABS: BE(vivo) 2.2 mmol/L (-2 to +3); HCO3 26.4 mmol/L (22.0-26.0); PCO2 39.3 mmHg (35.0-45.0); PO2 115.5 mmHg (80.0-100.0); pH 7.445 (7.360-7.450); sO2 98.4 % (92.0-98.0)
[2018-02-24] VITALS (57 sets, daily range): BP systolic 91–124; BP diastolic 41–101
[2018-02-24 03:57] LABS: HEMATOCRIT 23.5 % (37.0-47.0); HEMOGLOBIN 7.7 gm/dL (12.0-15.0); MCH 26.8 pg (26.0-34.0); MCHC 32.7 g/dL (28.0-37.0); MCV 82.2 fL (80.0-100.0); RBC 2.86 mil/uL (4.20-5.00); RDW 17.6 % (10.5-14.5); WBC 8.6 thou/uL (4.0-11.0)
[2018-02-24 04:06] LABS: ALBUMIN 1.7 g/dL (3.4-5.0); CALCIUM 8.5 mg/dL (8.5-10.1); CREATININE 3.3 mg/dL (0.6-1.0); PHOSPHORUS 4.8 mg/dL (2.5-4.9); POTASSIUM 3.8 mmol/L (3.5-5.1)
[2018-02-24 08:53] LABS: % SATURATION 7 % (20-39); IRON 16 ug/dL (50-170); TIBC 218 ug/dL (250-450)
[2018-02-25] VITALS (29 sets, daily range): BP systolic 82–118; BP diastolic 30–64
[2018-02-25 04:37] LABS: HEMATOCRIT 23.6 % (37.0-47.0); HEMOGLOBIN 7.7 gm/dL (12.0-15.0); MCH 26.4 pg (26.0-34.0); MCHC 32.5 g/dL (28.0-37.0); MCV 81.2 fL (80.0-100.0); RBC 2.91 mil/uL (4.20-5.00); RDW 17.2 % (10.5-14.5); WBC 7.6 thou/uL (4.0-11.0)
[2018-02-25 04:56] LABS: ALBUMIN 1.6 g/dL (3.4-5.0); CALCIUM 8.5 mg/dL (8.5-10.1); CREATININE 2.5 mg/dL (0.6-1.0); PHOSPHORUS 4.1 mg/dL (2.5-4.9); POTASSIUM 3.8 mmol/L (3.5-5.1)
[2018-02-25 05:30] LABS: BE(vivo) 1.8 mmol/L (-2 to +3); HCO3 26.7 mmol/L (22.0-26.0); PCO2 43.7 mmHg (35.0-45.0); PO2 130.4 mmHg (80.0-100.0); pH 7.404 (7.360-7.450); sO2 98.6 % (92.0-98.0)
[2018-02-25 09:35] LABS: BE(vivo) -0.7 mmol/L (-2 to +3); HCO3 26.2 mmol/L (22.0-26.0); PCO2 54.2 mmHg (35.0-45.0); PO2 93.5 mmHg (80.0-100.0); sO2 96.3 % (92.0-98.0)
[2018-02-25 09:51] LABS: pH 7.302 (7.360-7.450)
[2018-02-26] VITALS (11 sets, daily range): BP systolic 91–113; BP diastolic 47–65
[2018-02-26 04:17] LABS: HEMATOCRIT 22.2 % (37.0-47.0); HEMOGLOBIN 8.1 gm/dL (12.0-15.0); MCH 29.7 pg (26.0-34.0); MCHC 36.3 g/dL (28.0-37.0); MCV 81.8 fL (80.0-100.0); RBC 2.71 mil/uL (4.20-5.00); RDW 17.1 % (10.5-14.5); WBC 6.9 thou/uL (4.0-11.0)
[2018-02-26 04:39] LABS: ALBUMIN 1.5 g/dL (3.4-5.0); CALCIUM 7.7 mg/dL (8.5-10.1); CREATININE 3.1 mg/dL (0.6-1.0); PHOSPHORUS 4.8 mg/dL (2.5-4.9); POTASSIUM 4.5 mmol/L (3.5-5.1)
[2018-02-26 05:06] LABS: BE(vivo) -0.5 mmol/L (-2 to +3); PCO2 45.1 mmHg (35.0-45.0); PO2 77.8 mmHg (80.0-100.0); pH 7.361 (7.360-7.450)
[2018-02-26 07:33] LABS: DIRECT BILIRUBIN 0.1 mg/dL (<0.1-0.3)
[2018-02-26 07:51] LABS: TOTAL BILIRUBIN 0.6 mg/dL (<0.1-1.0)
[2018-02-26 07:52] LABS: ALBUMIN 1.7 g/dL (3.4-5.0); TOTAL PROTEIN 5.3 g/dL (6.4-8.2)
[2018-02-26 12:39] LABS: PCO2 54.9 mmHg (35.0-45.0); PO2 84.8 mmHg (80.0-100.0); pH 7.276 (7.360-7.450)
[2018-02-27] VITALS (70 sets, daily range): BP systolic 87–117; BP diastolic 37–78
[2018-02-27 03:10] LABS: HEMOGLOBIN 7.4 gm/dL (12.0-15.0); MCV 81.2 fL (80.0-100.0); RBC 2.83 mil/uL (4.20-5.00); RDW 17.3 % (10.5-14.5); WBC 6.9 thou/uL (4.0-11.0)
[2018-02-27 03:19] LABS: CALCIUM 8.5 mg/dL (8.5-10.1); CREATININE 3.8 mg/dL (0.6-1.0); POTASSIUM 4.2 mmol/L (3.5-5.1)
[2018-02-27 04:37] LABS: BE(vivo) -0.7 mmol/L (-2 to +3); HCO3 24.3 mmol/L (22.0-26.0); PCO2 42.1 mmHg (35.0-45.0); PO2 79.3 mmHg (80.0-100.0); sO2 95.5 % (92.0-98.0)
[2018-02-27 15:37] LABS: BE(vivo) 1.3 mmol/L (-2 to +3); HCO3 27.8 mmol/L (22.0-26.0); PCO2 54.5 mmHg (35.0-45.0); PO2 89.1 mmHg (80.0-100.0); pH 7.325 (7.360-7.450)
[2018-02-28] VITALS (64 sets, daily range): BP systolic 80–126; BP diastolic 44–95
[2018-02-28 04:23] LABS: CALCIUM 8.7 mg/dL (8.5-10.1); POTASSIUM 3.8 mmol/L (3.5-5.1)
[2018-02-28 04:27] LABS: CREATININE 2.6 mg/dL (0.6-1.0)
[2018-02-28 04:52] LABS: HEMATOCRIT 22.4 % (37.0-47.0); HEMOGLOBIN 7.2 gm/dL (12.0-15.0); MCH 26.3 pg (26.0-34.0); MCHC 32.3 g/dL (28.0-37.0); MCV 81.2 fL (80.0-100.0); RBC 2.76 mil/uL (4.20-5.00); RDW 17.7 % (10.5-14.5); WBC 6.4 thou/uL (4.0-11.0)
[2018-02-28 05:29] LABS: BE(vivo) 0.3 mmol/L (-2 to +3); HCO3 25.7 mmol/L (22.0-26.0); PCO2 45.4 mmHg (35.0-45.0); PO2 90.9 mmHg (80.0-100.0); pH 7.371 (7.360-7.450); sO2 96.7 % (92.0-98.0)
[2018-03-01] VITALS (43 sets, daily range): BP systolic 67–117; BP diastolic 41–99
[2018-03-01 05:28] LABS: BE(vivo) -2.2 mmol/L (-2 to +3); HCO3 23.4 mmol/L (22.0-26.0); PCO2 43.7 mmHg (35.0-45.0); pH 7.347 (7.360-7.450)
[2018-03-01 05:54] LABS: HEMATOCRIT 23.3 % (37.0-47.0); HEMOGLOBIN 7.5 gm/dL (12.0-15.0); MCV 81.1 fL (80.0-100.0); RBC 2.87 mil/uL (4.20-5.00); RDW 17.6 % (10.5-14.5); WBC 5.8 thou/uL (4.0-11.0)
[2018-03-01 06:07] LABS: CALCIUM 8.8 mg/dL (8.5-10.1); CREATININE 3.4 mg/dL (0.6-1.0)
[2018-03-02] VITALS (107 sets, daily range): BP systolic 62–133; BP diastolic 31–90
[2018-03-02 05:10] LABS: BE(vivo) -0.4 mmol/L (-2 to +3); HCO3 25.6 mmol/L (22.0-26.0); PCO2 48.4 mmHg (35.0-45.0); PO2 80.1 mmHg (80.0-100.0); pH 7.341 (7.360-7.450); sO2 95.1 % (92.0-98.0)
[2018-03-02 05:47] LABS: HEMATOCRIT 23.9 % (37.0-47.0); HEMOGLOBIN 7.6 gm/dL (12.0-15.0); MCH 26.3 pg (26.0-34.0); MCHC 32.1 g/dL (28.0-37.0); RBC 2.91 mil/uL (4.20-5.00); RDW 17.8 % (10.5-14.5); WBC 6.5 thou/uL (4.0-11.0)
[2018-03-02 05:54] LABS: CALCIUM 8.5 mg/dL (8.5-10.1); CREATININE 2.5 mg/dL (0.6-1.0); POTASSIUM 4.1 mmol/L (3.5-5.1)
[2018-03-03] VITALS (68 sets, daily range): BP systolic 77–126; BP diastolic 38–82
[2018-03-03 05:51] LABS: HEMATOCRIT 24.8 % (37.0-47.0); HEMOGLOBIN 7.8 gm/dL (12.0-15.0); MCH 26.1 pg (26.0-34.0); MCHC 31.4 g/dL (28.0-37.0); MCV 82.9 fL (80.0-100.0); RBC 2.99 mil/uL (4.20-5.00); RDW 17.8 % (10.5-14.5); WBC 7.4 thou/uL (4.0-11.0)
[2018-03-03 06:04] LABS: CALCIUM 9.2 mg/dL (8.5-10.1); POTASSIUM 4.1 mmol/L (3.5-5.1)
[2018-03-04] VITALS (39 sets, daily range): BP systolic 82–118; BP diastolic 23–61
[2018-03-04 05:38] LABS: BE(vivo) 0.9 mmol/L (-2 to +3); HCO3 27.5 mmol/L (22.0-26.0); PCO2 54.4 mmHg (35.0-45.0); PO2 68.3 mmHg (80.0-100.0)
[2018-03-04 05:39] LABS: pH 7.321 (7.360-7.450)
[2018-03-04 05:40] LABS: HEMATOCRIT 23.6 % (37.0-47.0); HEMOGLOBIN 7.6 gm/dL (12.0-15.0); MCH 26.4 pg (26.0-34.0); MCHC 32.3 g/dL (28.0-37.0); MCV 81.7 fL (80.0-100.0); RBC 2.88 mil/uL (4.20-5.00); RDW 17.9 % (10.5-14.5); WBC 6.2 thou/uL (4.0-11.0)
[2018-03-04 05:57] LABS: ALBUMIN 1.5 g/dL (3.4-5.0); CALCIUM 8.8 mg/dL (8.5-10.1); CREATININE 2.5 mg/dL (0.6-1.0); PHOSPHORUS 3.3 mg/dL (2.5-4.9); POTASSIUM 3.5 mmol/L (3.5-5.1)
[2018-03-05] VITALS (28 sets, daily range): BP systolic 87–119; BP diastolic 34–72
[2018-03-05 03:29] LABS: ALBUMIN 1.5 g/dL (3.4-5.0); CREATININE 3.1 mg/dL (0.6-1.0); PHOSPHORUS 3.2 mg/dL (2.5-4.9); POTASSIUM 3.5 mmol/L (3.5-5.1)
[2018-03-05 05:07] LABS: HEMATOCRIT 23.8 % (37.0-47.0); HEMOGLOBIN 7.6 gm/dL (12.0-15.0); MCH 26.4 pg (26.0-34.0); MCHC 31.9 g/dL (28.0-37.0); MCV 82.7 fL (80.0-100.0); RBC 2.87 mil/uL (4.20-5.00); RDW 18.1 % (10.5-14.5); WBC 7.1 thou/uL (4.0-11.0)
[2018-03-06] VITALS (57 sets, daily range): BP systolic 69–135; BP diastolic 23–103
[2018-03-06 04:13] LABS: HEMATOCRIT 22.8 % (37.0-47.0); HEMOGLOBIN 7.3 gm/dL (12.0-15.0); MCH 26.3 pg (26.0-34.0); MCHC 31.8 g/dL (28.0-37.0); MCV 82.6 fL (80.0-100.0); RBC 2.76 mil/uL (4.20-5.00); RDW 18.5 % (10.5-14.5); WBC 9.3 thou/uL (4.0-11.0)
[2018-03-06 04:29] LABS: ALBUMIN 1.5 g/dL (3.4-5.0); CREATININE 3.7 mg/dL (0.6-1.0); POTASSIUM 3.4 mmol/L (3.5-5.1); TOTAL BILIRUBIN 0.4 mg/dL (<0.1-1.0); TOTAL PROTEIN 5.6 g/dL (6.4-8.2)
[2018-03-06 14:14] LABS: BE(vivo) 0.4 mmol/L (-2 to +3); HCO3 28.1 mmol/L (22.0-26.0); PCO2 63.4 mmHg (35.0-45.0); PO2 67.2 mmHg (80.0-100.0); sO2 90.1 % (92.0-98.0)
[2018-03-06 14:15] LABS: pH 7.264 (7.360-7.450)
[2018-03-07] VITALS (65 sets, daily range): BP systolic 81–137; BP diastolic 33–60
[2018-03-07 03:22] LABS: HEMATOCRIT 23.4 % (37.0-47.0); HEMOGLOBIN 7.4 gm/dL (12.0-15.0); MCH 26.3 pg (26.0-34.0); MCHC 31.7 g/dL (28.0-37.0); MCV 82.8 fL (80.0-100.0); RBC 2.83 mil/uL (4.20-5.00); RDW 17.9 % (10.5-14.5); WBC 10.9 thou/uL (4.0-11.0)
[2018-03-07 03:29] LABS: CALCIUM 8.8 mg/dL (8.5-10.1); CREATININE 2.5 mg/dL (0.6-1.0); POTASSIUM 3.3 mmol/L (3.5-5.1)
[2018-03-07 05:12] LABS: BE(vivo) 2.4 mmol/L (-2 to +3); HCO3 28.3 mmol/L (22.0-26.0); PCO2 51.8 mmHg (35.0-45.0); PO2 76.8 mmHg (80.0-100.0); pH 7.356 (7.360-7.450); sO2 94.6 % (92.0-98.0)
[2018-03-08] VITALS (41 sets, daily range): BP systolic 81–174; BP diastolic 39–157
[2018-03-08 05:32] LABS: BE(vivo) 0.8 mmol/L (-2 to +3); HCO3 26.2 mmol/L (22.0-26.0); PCO2 45.9 mmHg (35.0-45.0); PO2 107.1 mmHg (80.0-100.0); pH 7.374 (7.360-7.450); sO2 97.8 % (92.0-98.0)
[2018-03-08 05:48] LABS: HEMATOCRIT 23.2 % (37.0-47.0); HEMOGLOBIN 7.3 gm/dL (12.0-15.0); MCH 26.1 pg (26.0-34.0); MCHC 31.5 g/dL (28.0-37.0); MCV 83.1 fL (80.0-100.0); RBC 2.79 mil/uL (4.20-5.00); RDW 18.4 % (10.5-14.5); WBC 13.6 thou/uL (4.0-11.0)
[2018-03-08 06:01] LABS: ALBUMIN 1.4 g/dL (3.4-5.0); CALCIUM 8.7 mg/dL (8.5-10.1); PHOSPHORUS 1.6 mg/dL (2.5-4.9); POTASSIUM 3.7 mmol/L (3.5-5.1)
[2018-03-09] VITALS (35 sets, daily range): BP systolic 83–119; BP diastolic 37–86
[2018-03-09 05:23] LABS: HEMATOCRIT 22.9 % (37.0-47.0); HEMOGLOBIN 7.3 gm/dL (12.0-15.0); MCH 26.1 pg (26.0-34.0); MCHC 31.6 g/dL (28.0-37.0); MCV 82.5 fL (80.0-100.0); PLATELET COUNT 296 thou/uL (150-400); RBC 2.78 mil/uL (4.20-5.00); RDW 19.6 % (10.5-14.5); WBC 14.7 thou/uL (4.0-11.0)
[2018-03-09 05:34] LABS: CALCIUM 8.5 mg/dL (8.5-10.1); CREATININE 2.4 mg/dL (0.6-1.0); MAGNESIUM 1.9 mg/dL (1.8-2.4)
[2018-03-09 08:19] LABS: ABSOLUTE NEUTROPHILS 9.3 thou/uL (1.4-8.2); METAMYELOCYTES 5 %; MYELOCYTES 3 %
[2018-03-09 08:21] LABS: ANISOCYTOSIS 2+; HYPOCHROMASIA 1+; PLATELET ESTIMATE NORMAL; POLYCHROMASIA 1+; TOXIC GRANULATION 1+
[2018-03-10] VITALS (67 sets, daily range): BP systolic 71–115; BP diastolic 34–79
[2018-03-10 04:59] LABS: BE(vivo) -0.1 mmol/L (-2 to +3); HCO3 25.5 mmol/L (22.0-26.0); PCO2 46.4 mmHg (35.0-45.0); PO2 100.8 mmHg (80.0-100.0); pH 7.358 (7.360-7.450); sO2 97.3 % (92.0-98.0)
[2018-03-10 05:29] LABS: HEMATOCRIT 22.1 % (37.0-47.0); HEMOGLOBIN 7.3 gm/dL (12.0-15.0); MCH 26.3 pg (26.0-34.0); MCV 79.8 fL (80.0-100.0); RBC 2.77 mil/uL (4.20-5.00); RDW 18.9 % (10.5-14.5); WBC 16.6 thou/uL (4.0-11.0)
[2018-03-10 05:35] LABS: CALCIUM 8.9 mg/dL (8.5-10.1); CREATININE 2.8 mg/dL (0.6-1.0); POTASSIUM 3.9 mmol/L (3.5-5.1)
[2018-03-10 09:19] LABS: ALBUMIN 1.6 g/dL (3.4-5.0); DIRECT BILIRUBIN 0.3 mg/dL (<0.1-0.3); TOTAL BILIRUBIN 0.4 mg/dL (<0.1-1.0); TOTAL PROTEIN 5.9 g/dL (6.4-8.2)
[2018-03-10 11:23] LABS: METAMYELOCYTES 10 %; MYELOCYTES 6 %
[2018-03-10 11:24] LABS: ANISOCYTOSIS 2+; POLYCHROMASIA SLIGHT
[2018-03-10 11:25] LABS: CORRECTED WBC 16.9 thou/uL (4.0-11.0)
[2018-03-10 11:26] LABS: WBC 16.9 thou/uL (4.0-11.0)
[2018-03-11] VITALS (37 sets, daily range): BP systolic 67–146; BP diastolic 36–97
[2018-03-11 06:03] LABS: HEMATOCRIT 22.1 % (37.0-47.0); HEMOGLOBIN 7.2 gm/dL (12.0-15.0); MCH 26.3 pg (26.0-34.0); MCHC 32.5 g/dL (28.0-37.0); MCV 80.9 fL (80.0-100.0); PLATELET COUNT 264 thou/uL (150-400); RBC 2.73 mil/uL (4.20-5.00); RDW 19.3 % (10.5-14.5); WBC 13.9 thou/uL (4.0-11.0)
[2018-03-11 06:21] LABS: ALBUMIN 1.5 g/dL (3.4-5.0); CALCIUM 8.4 mg/dL (8.5-10.1); PHOSPHORUS 1.8 mg/dL (2.5-4.9); POTASSIUM 3.4 mmol/L (3.5-5.1)
[2018-03-11 06:32] LABS: ABSOLUTE NEUTROPHILS 9.5 thou/uL (1.4-8.2); ANISOCYTOSIS 2+; METAMYELOCYTES 4 %; MYELOCYTES 2 %
[2018-03-11 06:33] LABS: POLYCHROMASIA SLIGHT
[2018-03-12] VITALS (40 sets, daily range): BP systolic 84–128; BP diastolic 36–66
[2018-03-12 05:55] LABS: ALBUMIN 1.5 g/dL (3.4-5.0); CALCIUM 8.6 mg/dL (8.5-10.1); CREATININE 2.4 mg/dL (0.6-1.0); PHOSPHORUS 2.6 mg/dL (2.5-4.9); POTASSIUM 3.5 mmol/L (3.5-5.1)
[2018-03-13] VITALS (85 sets, daily range): BP systolic 86–121; BP diastolic 34–95
[2018-03-13 05:08] LABS: BE(vivo) 0.2 mmol/L (-2 to +3); HCO3 26.1 mmol/L (22.0-26.0); PCO2 48.7 mmHg (35.0-45.0); PO2 111.7 mmHg (80.0-100.0); pH 7.347 (7.360-7.450); sO2 97.8 % (92.0-98.0)
[2018-03-13 05:13] LABS: HEMATOCRIT 23.1 % (37.0-47.0); HEMOGLOBIN 7.4 gm/dL (12.0-15.0); MCH 26.4 pg (26.0-34.0); MCHC 32.1 g/dL (28.0-37.0); MCV 82.4 fL (80.0-100.0); PLATELET COUNT 259 thou/uL (150-400); RDW 19.9 % (10.5-14.5); WBC 15.6 thou/uL (4.0-11.0)
[2018-03-13 05:24] LABS: ALBUMIN 1.6 g/dL (3.4-5.0); CALCIUM 8.9 mg/dL (8.5-10.1); CREATININE 2.8 mg/dL (0.6-1.0); POTASSIUM 3.6 mmol/L (3.5-5.1)
[2018-03-13 08:54] LABS: ABSOLUTE NEUTROPHILS 10.9 thou/uL (1.4-8.2); ANISOCYTOSIS 1+; METAMYELOCYTES 7 %; PLATELET ESTIMATE NORMAL; POLYCHROMASIA 1+
[2018-03-13 11:12] LABS: HCO3 24.5 mmol/L (22.0-26.0); PCO2 51.2 mmHg (35.0-45.0); PO2 101.5 mmHg (80.0-100.0); pH 7.298 (7.360-7.450)
[2018-03-14] VITALS (37 sets, daily range): BP systolic 68–124; BP diastolic 40–75
[2018-03-14 05:59] LABS: HEMATOCRIT 22.2 % (37.0-47.0); HEMOGLOBIN 7.2 gm/dL (12.0-15.0); MCH 26.3 pg (26.0-34.0); MCHC 32.4 g/dL (28.0-37.0); MCV 81.2 fL (80.0-100.0); PLATELET COUNT 224 thou/uL (150-400); RBC 2.73 mil/uL (4.20-5.00); RDW 20.2 % (10.5-14.5); WBC 13.4 thou/uL (4.0-11.0)
[2018-03-14 06:10] LABS: CALCIUM 8.6 mg/dL (8.5-10.1); CREATININE 1.9 mg/dL (0.6-1.0); MAGNESIUM 1.7 mg/dL (1.8-2.4); POTASSIUM 3.4 mmol/L (3.5-5.1)
[2018-03-14 07:12] LABS: ABSOLUTE NEUTROPHILS 9.1 thou/uL (1.4-8.2); METAMYELOCYTES 6 %; MYELOCYTES 1 %
[2018-03-14 07:13] LABS: ANISOCYTOSIS 2+; POLYCHROMASIA SLIGHT
== END 2018-03-14 17:20 | DRG 4 ==
LOC: ER 12:09 → ICU 13:34 → EROBS 13:34 → ICU 15:27
PROVIDERS: Emergency Medicine; Hospitalist; Internal Medicine; Internal Medicine Geriatric Medicine; Internal Medicine Nephrology; Internal Medicine Pulmonary Disease; Specialist
PROC: 5A09357 Assistance with Respiratory Ventilation, Less than 24 Consecutive Hours, Continuous Positive Airway Pressure (ICD-10-PCS; principal; 2018-02-20)
PROC: 5A1955Z Respiratory Ventilation, Greater than 96 Consecutive Hours (ICD-10-PCS; principal; 2018-02-20)
PROC: 0BH17EZ Insertion of Endotracheal Airway into Trachea, Via Natural or Artificial Opening (ICD-10-PCS; principal; 2018-02-20)
PROC: 5A1D70Z Performance of Urinary Filtration, Intermittent, Less than 6 Hours Per Day (ICD-10-PCS; principal; 2018-02-20)
PROC: 5A1D70Z Performance of Urinary Filtration, Intermittent, Less than 6 Hours Per Day (ICD-10-PCS; 2018-02-21)
PROC: B548ZZA Ultrasonography of Superior Vena Cava, Guidance (ICD-10-PCS; 2018-02-22)
PROC: 02HV33Z Insertion of Infusion Device into Superior Vena Cava, Percutaneous Approach (ICD-10-PCS; 2018-02-22)
PROC: 5A1D70Z Performance of Urinary Filtration, Intermittent, Less than 6 Hours Per Day (ICD-10-PCS; 2018-02-22)
PROC: 0B9C8ZX Drainage of Right Upper Lung Lobe, Via Natural or Artificial Opening Endoscopic, Diagnostic (ICD-10-PCS; 2018-02-23)
PROC: 5A1D70Z Performance of Urinary Filtration, Intermittent, Less than 6 Hours Per Day (ICD-10-PCS; 2018-02-24)
PROC: 5A1D70Z Performance of Urinary Filtration, Intermittent, Less than 6 Hours Per Day (ICD-10-PCS; 2018-02-27)
PROC: 5A1955Z Respiratory Ventilation, Greater than 96 Consecutive Hours (ICD-10-PCS; 2018-03-01)
PROC: 0BJ08ZZ Inspection of Tracheobronchial Tree, Via Natural or Artificial Opening Endoscopic (ICD-10-PCS; 2018-03-01)
PROC: 5A1D70Z Performance of Urinary Filtration, Intermittent, Less than 6 Hours Per Day (ICD-10-PCS; 2018-03-01)
PROC: 0B110F4 Bypass Trachea to Cutaneous with Tracheostomy Device, Open Approach (ICD-10-PCS; 2018-03-01)
PROC: 0JH63XZ Insertion of Tunneled Vascular Access Device into Chest Subcutaneous Tissue and Fascia, Percutaneous Approach (ICD-10-PCS; 2018-03-02)
PROC: B2141ZZ Fluoroscopy of Right Heart using Low Osmolar Contrast (ICD-10-PCS; 2018-03-02)
PROC: 02H633Z Insertion of Infusion Device into Right Atrium, Percutaneous Approach (ICD-10-PCS; 2018-03-02)
PROC: B244YZZ Ultrasonography of Right Heart using Other Contrast (ICD-10-PCS; 2018-03-02)
PROC: 5A1D70Z Performance of Urinary Filtration, Intermittent, Less than 6 Hours Per Day (ICD-10-PCS; 2018-03-02)
PROC: 5A1D70Z Performance of Urinary Filtration, Intermittent, Less than 6 Hours Per Day (ICD-10-PCS; 2018-03-03)
PROC: 5A1D70Z Performance of Urinary Filtration, Intermittent, Less than 6 Hours Per Day (ICD-10-PCS; 2018-03-04)
PROC: 5A1D70Z Performance of Urinary Filtration, Intermittent, Less than 6 Hours Per Day (ICD-10-PCS; 2018-03-06)
PROC: 5A1D70Z Performance of Urinary Filtration, Intermittent, Less than 6 Hours Per Day (ICD-10-PCS; 2018-03-07)
PROC: 5A1D70Z Performance of Urinary Filtration, Intermittent, Less than 6 Hours Per Day (ICD-10-PCS; 2018-03-08)
PROC: 5A1D70Z Performance of Urinary Filtration, Intermittent, Less than 6 Hours Per Day (ICD-10-PCS; 2018-03-10)
PROC: 5A1D70Z Performance of Urinary Filtration, Intermittent, Less than 6 Hours Per Day (ICD-10-PCS; 2018-03-13)
DX: A41.9 Sepsis, unspecified organism (principal); J96.21 Acute and chronic respiratory failure with hypoxia; J96.22 Acute and chronic respiratory failure with hypercapnia; G93.40 Encephalopathy, unspecified; J18.9 Pneumonia, unspecified organism; N18.6 End stage renal disease; E43 Unspecified severe protein-calorie malnutrition; E66.2 Morbid (severe) obesity with alveolar hypoventilation; Z68.44 Body mass index [BMI] 60.0-69.9, adult; N17.9 Acute kidney failure, unspecified; I42.0 Dilated cardiomyopathy; D68.59 Other primary thrombophilia; I12.0 Hypertensive chronic kidney disease with stage 5 chronic kidney disease or end stage renal disease; L03.116 Cellulitis of left lower limb; L03.115 Cellulitis of right lower limb; E87.1 Hypo-osmolality and hyponatremia; J44.0 Chronic obstructive pulmonary disease with (acute) lower respiratory infection; N39.0 Urinary tract infection, site not specified; I87.8 Other specified disorders of veins; Y95 Nosocomial condition; E87.5 Hyperkalemia; E11.22 Type 2 diabetes mellitus with diabetic chronic kidney disease; D63.8 Anemia in other chronic diseases classified elsewhere; D69.6 Thrombocytopenia, unspecified; I48.2 Chronic atrial fibrillation; D50.9 Iron deficiency anemia, unspecified; I27.20 Pulmonary hypertension, unspecified; E83.39 Other disorders of phosphorus metabolism; L30.8 Other specified dermatitis; E87.6 Hypokalemia; E78.5 Hyperlipidemia, unspecified; E03.9 Hypothyroidism, unspecified; Z90.49 Acquired absence of other specified parts of digestive tract; Z90.721 Acquired absence of ovaries, unilateral; Z99.2 Dependence on renal dialysis; Z87.891 Personal history of nicotine dependence; Z79.899 Other long term (current) drug therapy; Z84.1 Family history of disorders of kidney and ureter; Z66 Do not resuscitate; Z51.5 Encounter for palliative care
CPT/HCPCS: 10078; 32100; 50101; 50386; 50398; 56525; 56526; 56639; 57006; 62110; 62900